=== PATIENT | male | born 1965 | race Asian ===

== ENCOUNTER 2022-05-06 17:31 | Emergency (ER) | payer MEDICAID ==
[~2022-05-06] VITALS: Ht 175.3 cm; Wt 72.6 kg
--- NOTE | 2022-05-06 18:15 | NUR ---
PT IS IN ROOM #1A. DR JUSTIN EVALUATED THE PT.
[2022-05-06 18:34] LABS: HEMATOCRIT 37.5 % (36.7-47.1); MEAN CORPUSCULAR HEMOGLOBIN 30.5 uug (23.8-33.4); MEAN CORPUSCULAR VOLUME 90.2 fL (73.0-96.2); PLATELET COUNT (AUTO) 177 K/uL (152-348)
[2022-05-06 18:47] LABS: CARBON DIOXIDE 27 mmol/L (21-32); CHLORIDE 106 mmol/L (98-107); CREATININE 1.1 mg/dL (0.6-1.3); GLUCOSE 92 mg/dL (74-106); POTASSIUM 4.1 mmol/L (3.5-5.1); UREA NITROGEN, BLOOD 29 mg/dL (7-18)
[2022-05-06 19:00] LABS: ALANINE AMINOTRANSFERASE 79 U/L (16-63); ALKALINE PHOSPHATASE 93 U/L (50-136); ASPARTATE AMINOTRANSFERASE 37 U/L (15-37); BILIRUBIN,DIRECT 0.1 mg/dL (0.0-0.2); BILIRUBIN,TOTAL 0.5 mg/dL (0.2-1.0); TOTAL PROTEIN, SERUM 6.8 g/dL (6.4-8.2)
--- NOTE | 2022-05-06 19:24 | NUR ---
Patient eloped from facility. ER physician notified. 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
== END 2022-05-06 19:26 | disposition left against medical advice (07) ==
LOC: ER 17:35
DX: I50.9 Heart failure, unspecified (principal); E78.5 Hyperlipidemia, unspecified; R07.9 Chest pain, unspecified; R94.31 Abnormal electrocardiogram [ECG] [EKG]
CPT/HCPCS: 36415; 71045; 84484; 85025; 93005; A4663

== ENCOUNTER 2022-09-20 14:15 | Emergency (ER) | payer MEDICAID ==
[~2022-09-20] VITALS: Ht 175.3 cm; Wt 72.6 kg
--- NOTE | 2022-09-20 14:28 | NUR ---
Dr Patton at the bedside for MSE.
[2022-09-20] MEDS ORDERED: MORPHINE SULFATE 2 MG/1 ML DISP.SYRIN IV ONE (14:45)
[2022-09-20] MEDS ORDERED: ONDANSETRON 4 MG/2 ML VIAL IV ONE (14:45)
[2022-09-20] MEDS ORDERED: ONDANSETRON 4 MG/2 ML VIAL ONE (14:50)
[2022-09-20] MEDS ORDERED: MORPHINE SULFATE 4 MG/1 ML DISP.SYRIN ONE (14:50)
[2022-09-20 14:58] LABS: HEMATOCRIT 44.2 % (36.7-47.1); MEAN CORPUSCULAR HEMOGLOBIN 30.3 uug (23.8-33.4); MEAN CORPUSCULAR VOLUME 92.6 fL (73.0-96.2); PLATELET COUNT (AUTO) 169 K/uL (152-348)
[2022-09-20 15:12] LABS: CARBON DIOXIDE 26 mmol/L (21-32); CHLORIDE 103 mmol/L (98-107); CREATININE 1.4 mg/dL (0.6-1.3); GLUCOSE 125 mg/dL (74-106); POTASSIUM 4.2 mmol/L (3.5-5.1); UREA NITROGEN, BLOOD 39 mg/dL (7-18)
--- NOTE | 2022-09-20 15:22 | NUR ---
Pt out of ER for Ct scan.
[2022-09-20 15:25] LABS: ALANINE AMINOTRANSFERASE 43 U/L (16-63); ALKALINE PHOSPHATASE 89 U/L (50-136); ASPARTATE AMINOTRANSFERASE 37 U/L (15-37); BILIRUBIN,DIRECT 0.4 mg/dL (0.0-0.2); BILIRUBIN,TOTAL 1.6 mg/dL (0.2-1.0); TOTAL PROTEIN, SERUM 7.4 g/dL (6.4-8.2)
--- NOTE | 2022-09-20 15:30 | NUR ---
Pt back from Ct scan, resting in bed.
--- NOTE | 2022-09-20 16:02 | NUR ---
Patient is resting comfortably in bed with eyes closed, NAD noted.
--- NOTE | 2022-09-20 17:30 | NUR ---
Dinner tray provided, pt ate w/ great appettite.
[2022-09-20 18:18] VITALS: BP 131/68
--- NOTE | 2022-09-20 18:18 | NUR ---
Patient given written and verbal discharge instructions. Patient verbalizes understanding of instructions. Patient is ambulatory with steady gait. Refuses offer of [facility] placement. Patient given list of available shelters in surrounding area.
--- NOTE | 2022-09-20 18:18 | NUR ---
IV removed. Catheter intact and site benign. Pressure and 4x4 gauze applied to site. No bleeding noted.
== END 2022-09-20 18:19 | disposition home or self-care (01) ==
LOC: ER 14:15
DX: R07.9 Chest pain, unspecified (principal); J44.9 Chronic obstructive pulmonary disease, unspecified; E78.00 Pure hypercholesterolemia, unspecified; Z87.19 Personal history of other diseases of the digestive system; I50.9 Heart failure, unspecified
CPT/HCPCS: 99285; 74176; 96374; 71045; 96375; 80076; 80048; 83880; 83690; 85025; 84484; 36415; 93005; J2405; J2270; A4663

== ENCOUNTER 2023-12-26 11:22 | Emergency (ER) | payer MEDICAID ==
[~2023-12-26] VITALS: Ht 172.7 cm; Wt 72.6 kg
[~2023-12-26 11:22] MED LIST: BUPR1FIL SL; FURO-152 PO; MORP15TA60 PO
[2023-12-26 11:59] LABS: BASOPHILS # (AUTO) 0.2 K/UL (0.0-0.2); EOSINOPHILS # (AUTO) 0.2 K/uL (0.0-0.7); EOSINOPHILS % (AUTO) 2.3 % (0.0-7.0); HEMATOCRIT 39.2 % (36.7-47.1); HEMOGLOBIN 12.8 g/dL (12.5-16.3); LYMPHOCYTES # (AUTO) 1.3 K/uL (0.8-4.8); LYMPHOCYTES % (AUTO) 15.2 % (20.5-51.5); MEAN CORPUSCULAR HEMOGLOBIN 28.7 uug (23.8-33.4); MEAN CORPUSCULAR HGB CONC 33 g/dL (32.5-36.3); MONOCYTES # (AUTO) 0.6 K/uL (0.1-1.30); MONOCYTES % (AUTO) 6.6 % (0.0-11.0); NEUTROPHILS # (AUTO) 6.3 K/uL (1.8-8.9); NEUTROPHILS % (AUTO) 73.9 % (38.5-71.5); PLATELET COUNT (AUTO) 280 K/uL (152-348); RED BLOOD CELL COUNT(AUTO) 4.46 MIL/uL (4.06-5.63); RED CELL DISTRIBUTION WIDTH 15.8 % (12.1-16.2); WHITE BLOOD COUNT (AUTO) 8.6 K/uL (3.6-10.2)
[2023-12-26 12:32] LABS: ALANINE AMINOTRANSFERASE 52 U/L (16-63); ALBUMIN 3.6 g/dL (3.4-5.0); ALKALINE PHOSPHATASE 126 U/L (50-136); ASPARTATE AMINOTRANSFERASE 37 U/L (15-37); BILIRUBIN,DIRECT 0.3 mg/dL (0.0-0.2); BILIRUBIN,TOTAL 0.9 mg/dL (0.2-1.0); CARBON DIOXIDE 31 mmol/L (21-32); CHLORIDE 99 mmol/L (98-107); CREATININE 1.2 mg/dL (0.6-1.3); GLUCOSE 123 mg/dL (74-106); NT-PRO BNP 6092 pg/mL (0-125); POTASSIUM 4.2 mmol/L (3.5-5.1); SODIUM SERUM 137 mmol/L (136-145); TOTAL PROTEIN, SERUM 8.4 g/dL (6.4-8.2); UREA NITROGEN, BLOOD 24 mg/dL (7-18)
[2023-12-26 12:42] LABS: DIFFERENTIAL COMMENT 1
[2023-12-26] MEDS: ASPIRIN 81 MG TAB.CHEW PO ONE (13:24)
[2023-12-26 13:25] VITALS: BP 112/70
[2023-12-26] MEDS: NITROGLYCERIN OINT 1 GM PACKET TP ONE (13:25)
[2023-12-26] MEDS ORDERED: NITROGLYCERIN OINT 1 GM PACKET TP ONE (13:27)
[2023-12-26] MEDS ORDERED: ASPIRIN 81 MG TAB.CHEW ONE (13:27)
[2023-12-26 13:38] LABS: *AMPHETAMINE, URINE NEGATIVE (NEGATIVE); *BARBITURATE, URINE NEGATIVE (NEGATIVE); *BENZODIAZEPINE, URINE NEGATIVE (NEGATIVE); *CANNABINOID, URINE NEGATIVE (NEGATIVE); *COCCAINE, URINE NEGATIVE (NEGATIVE); *OPIATE, URINE NEGATIVE (NEGATIVE); *PHENCYCLIDINE SCREEN,URINE NEGATIVE (NEGATIVE)
[2023-12-26] MEDS ORDERED: BUPR1FIL7 SL (13:40)
[2023-12-26] MEDS ORDERED: ATOR10TA PO (13:40)
[2023-12-26] MEDS ORDERED: FURO-152 PO (13:40)
[2023-12-26] MEDS ORDERED: MORP15TA PO (13:40)
[2023-12-26 13:47] LABS: FENTANYL, URINE NEGATIVE (NEGATIVE)
[2023-12-26] MEDS: HYDROMORPHONE 1 MG/1 ML DISP.SYRIN IV ONE (14:30)
[2023-12-26] MEDS ORDERED: HYDROMORPHONE 1 MG/1 ML DISP.SYRIN ONE (14:38)
[2023-12-26] MEDS: ONDANSETRON 4 MG/2 ML VIAL IV ONE (14:40)
[2023-12-26] MEDS ORDERED: ONDANSETRON 4 MG/2 ML VIAL ONE (14:43)
[2023-12-26 18:47] VITALS: O2SAT 96
== END 2023-12-26 19:28 | disposition short-term general hospital (02) ==
LOC: ER 11:22
DX: I21.4 Non-ST elevation (NSTEMI) myocardial infarction (principal); F17.200 Nicotine dependence, unspecified, uncomplicated; Z79.899 Other long term (current) drug therapy; Z59.00 Homelessness unspecified
CPT/HCPCS: 99291; 96374; 96375; 80076; 80048; 83880; 83690; 85025; 85379; 85730; 84484 ×2; 36415; 93005; 71045; 80307; J2405; J1170; A4606; A4663

== ENCOUNTER 2024-02-21 18:50 | Emergency (ER) | payer MEDICAID ==
[~2024-02-21] VITALS: Ht 172.7 cm; Wt 68.0 kg
[~2024-02-21 18:50] MED LIST changes: +ATOR10TA PO; +BUPR1FIL7 SL; +MORP15TA PO
[2024-02-21] MEDS ORDERED: OXYCODONE/APAP 5-325 MG TABLET ONE (19:32)
[2024-02-21] MEDS ORDERED: ONDANSETRON ODT 4 MG TAB.RAPDIS ONE (19:32)
[2024-02-21] MEDS: OXYCODONE/APAP 5-325 MG TABLET PO ONE (19:35)
[2024-02-21] MEDS: ONDANSETRON ODT 4 MG TAB.RAPDIS SL ONE (19:35)
[2024-02-21] MEDS ORDERED: OXYC-133 PO (20:34)
[2024-02-21 20:44] VITALS: BP 138/69; TEMP 97.9; O2SAT 99
== END 2024-02-21 20:45 | disposition home or self-care (01) ==
LOC: ER 18:53
DX: S01.81XA Laceration without foreign body of other part of head, initial encounter (principal); R51.9 Headache, unspecified; F17.200 Nicotine dependence, unspecified, uncomplicated; Z79.899 Other long term (current) drug therapy; Z59.00 Homelessness unspecified; Y08.89XA Assault by other specified means, initial encounter; Y93.89 Activity, other specified; Y92.89 Other specified places as the place of occurrence of the external cause; Y99.8 Other external cause status
CPT/HCPCS: 70450; A4606; A4663; Q0162

== ENCOUNTER 2024-04-02 15:06 | Emergency (ER) | payer MEDICAID ==
[~2024-04-02] VITALS: Ht 175.3 cm; Wt 70.3 kg
[~2024-04-02 15:06] MED LIST changes: +OXYC-133 PO
[2024-04-02 15:54] LABS: BASOPHILS # (AUTO) 0.1 K/UL (0.0-0.2); BASOPHILS % (AUTO) 1.4 % (0.0-2.0); EOSINOPHILS # (AUTO) 0.1 K/uL (0.0-0.7); EOSINOPHILS % (AUTO) 1.3 % (0.0-7.0); HEMATOCRIT 37.5 % (36.7-47.1); HEMOGLOBIN 12.3 g/dL (12.5-16.3); LYMPHOCYTES % (AUTO) 20.3 % (20.5-51.5); MEAN CORPUSCULAR HGB CONC 33 g/dL (32.5-36.3); MEAN CORPUSCULAR VOLUME 85.4 fL (73.0-96.2); MONOCYTES # (AUTO) 0.5 K/uL (0.1-1.30); MONOCYTES % (AUTO) 10.4 % (0.0-11.0); NEUTROPHILS # (AUTO) 3.4 K/uL (1.8-8.9); NEUTROPHILS % (AUTO) 66.6 % (38.5-71.5); PLATELET COUNT (AUTO) 139 K/uL (152-348); RED CELL DISTRIBUTION WIDTH 22.1 % (12.1-16.2); WHITE BLOOD COUNT (AUTO) 5.1 K/uL (3.6-10.2)
[2024-04-02 16:00] LABS: DIFFERENTIAL COMMENT 1
[2024-04-02 16:03] LABS: *BILIRUBIN,URIN NEGATIVE (NEGATIVE); *BLOOD, URINE NEGATIVE (NEGATIVE); *CLARITY,URINE CLEAR (CLEAR); *COLOR,URINE YELLOW (YELLOW); *KETONES,URINE NEGATIVE (NEGATIVE); *PROTEIN,URINE 3+ (NEGATIVE); LEUKOCYTE ESTERASE ,URINE NEGATIVE (NEGATIVE); NITRITE, URINE NEGATIVE (NEGATIVE); UGLUCOSE NEGATIVE (NEGATIVE)
[2024-04-02 16:05] LABS: CALCIUM 8.7 mg/dL (8.5-10.1); CARBON DIOXIDE 18 mmol/L (21-32); CHLORIDE 105 mmol/L (98-107); CREATININE 1.2 mg/dL (0.6-1.3); GLUCOSE 95 mg/dL (74-106); POTASSIUM 4.2 mmol/L (3.5-5.1); SODIUM SERUM 135 mmol/L (136-145); UREA NITROGEN, BLOOD 34 mg/dL (7-18)
[2024-04-02 16:08] LABS: ETHANOL < 3 MG/DL (0-10)
[2024-04-02] MEDS ORDERED: LORAZEPAM 1 MG TABLET ONE (16:10)
[2024-04-02] MEDS ORDERED: HYDROCODONE/APAP 10-325 MG TABLET ONE (16:11)
[2024-04-02] MEDS: HYDROCODONE/APAP 10-325 MG TABLET PO ONE (16:13)
[2024-04-02] MEDS: LORAZEPAM 0.5 MG TABLET PO ONE (16:13)
[2024-04-02 16:14] LABS: ALANINE AMINOTRANSFERASE 35 U/L (16-63); ALBUMIN 3.5 g/dL (3.4-5.0); ALKALINE PHOSPHATASE 102 U/L (50-136); ASPARTATE AMINOTRANSFERASE 29 U/L (15-37); BILIRUBIN,DIRECT 0.4 mg/dL (0.0-0.2); BILIRUBIN,TOTAL 0.9 mg/dL (0.2-1.0); TOTAL PROTEIN, SERUM 7.4 g/dL (6.4-8.2)
[2024-04-02 16:17] LABS: *AMPHETAMINE, URINE POSITIVE (NEGATIVE); *BARBITURATE, URINE NEGATIVE (NEGATIVE); *BENZODIAZEPINE, URINE NEGATIVE (NEGATIVE); *CANNABINOID, URINE NEGATIVE (NEGATIVE); *COCCAINE, URINE NEGATIVE (NEGATIVE); *OPIATE, URINE NEGATIVE (NEGATIVE); *PHENCYCLIDINE SCREEN,URINE NEGATIVE (NEGATIVE); FENTANYL, URINE NEGATIVE (NEGATIVE)
[2024-04-02 16:27] LABS: BACTERIA,URINE NONE SEEN /HPF (NONE SEEN); RBC,URINE NONE SEEN /HPF (0-3); SQUAMOUS EPITHELIAL CELL,UR FEW /HPF (NONE SEEN); WBC,URINE 0-3 /HPF (0-3)
[2024-04-02] MEDS ORDERED: NALO4SPR (18:18)
[2024-04-02] MEDS ORDERED: EMPA10TA PO (18:18)
[2024-04-02] MEDS ORDERED: ASPI-1420 PO (18:18)
[2024-04-02] MEDS ORDERED: NITR0.4T48 SL (18:18)
[2024-04-02] MEDS ORDERED: SPIR25TA6 PO (18:18)
[2024-04-02] MEDS ORDERED: FURO40TA5 PO (18:18)
[2024-04-02] MEDS ORDERED: CARV6.252 PO (18:18)
[2024-04-02] MEDS ORDERED: ISOS10TA2 PO (18:18)
[2024-04-02] MEDS ORDERED: GABA300T25 (18:18)
[2024-04-02] MEDS ORDERED: ACET-73 PO (18:18)
[2024-04-02] MEDS ORDERED: ATOR80TA (18:18)
[2024-04-02] MEDS ORDERED: HYDR-3980 PO (18:31)
[2024-04-02] MEDS ORDERED: DICY20TA11 PO (18:31)
[2024-04-02 18:39] LABS: LIPASE 32 U/L (16-77)
[2024-04-03 02:39] VITALS: BP 138/88; O2SAT 97
== END 2024-04-02 19:50 | disposition home or self-care (01) ==
LOC: ER 15:07
DX: R10.9 Unspecified abdominal pain (principal); F17.200 Nicotine dependence, unspecified, uncomplicated; Z98.890 Other specified postprocedural states; Z79.899 Other long term (current) drug therapy; Z79.82 Long term (current) use of aspirin; Z59.00 Homelessness unspecified
CPT/HCPCS: 36415; 71045; 83605; 83690; 84484; 85025; 93005; A4606; A4663; G0480

== ENCOUNTER 2024-04-08 20:09 | Inpatient (IN) | payer MEDICAID ==
[~2024-04-08] VITALS: Ht 170.2 cm; Wt 69.2 kg
[~2024-04-08 20:09] MED LIST changes: +ACET-73 PO; +ASPI-1420 PO; -ATOR10TA PO; +ATOR80TA; -BUPR1FIL SL; -BUPR1FIL7 SL; +CARV6.252 PO; +DICY20TA11 PO; +EMPA10TA PO; -FURO-152 PO; +FURO40TA5 PO; +GABA300T25; +HYDR-3980 PO; +ISOS10TA2 PO; -MORP15TA PO; -MORP15TA60 PO; +NALO4SPR; +NITR0.4T48 SL; -OXYC-133 PO; +SPIR25TA6 PO
[2024-04-08] MEDS ORDERED: MORPHINE SULFATE 2 MG/1 ML DISP.SYRIN ONE (20:57)
[2024-04-08] MEDS: MORPHINE SULFATE 2 MG/1 ML DISP.SYRIN IV ONE (21:20)
[2024-04-08 21:28] LABS: BASOPHILS # (AUTO) 0.1 K/UL (0.0-0.2); BASOPHILS % (AUTO) 1.1 % (0.0-2.0); EOSINOPHILS # (AUTO) 0.1 K/uL (0.0-0.7); EOSINOPHILS % (AUTO) 1.4 % (0.0-7.0); HEMATOCRIT 40.6 % (36.7-47.1); HEMOGLOBIN 13.1 g/dL (12.5-16.3); LYMPHOCYTES # (AUTO) 1.1 K/uL (0.8-4.8); LYMPHOCYTES % (AUTO) 19.9 % (20.5-51.5); MEAN CORPUSCULAR HEMOGLOBIN 28.3 uug (23.8-33.4); MEAN CORPUSCULAR HGB CONC 32 g/dL (32.5-36.3); MEAN CORPUSCULAR VOLUME 87.4 fL (73.0-96.2); MONOCYTES # (AUTO) 0.5 K/uL (0.1-1.30); MONOCYTES % (AUTO) 9.4 % (0.0-11.0); NEUTROPHILS # (AUTO) 3.8 K/uL (1.8-8.9); NEUTROPHILS % (AUTO) 68.2 % (38.5-71.5); PLATELET COUNT (AUTO) 137 K/uL (152-348); RED BLOOD CELL COUNT(AUTO) 4.64 MIL/uL (4.06-5.63); RED CELL DISTRIBUTION WIDTH 24.4 % (12.1-16.2); WHITE BLOOD COUNT (AUTO) 5.5 K/uL (3.6-10.2)
[2024-04-08 21:30] LABS: *BILIRUBIN,URIN NEGATIVE (NEGATIVE); *BLOOD, URINE NEGATIVE (NEGATIVE); *CLARITY,URINE CLEAR (CLEAR); *COLOR,URINE YELLOW (YELLOW); *KETONES,URINE NEGATIVE (NEGATIVE); *PROTEIN,URINE 1+ (NEGATIVE); *UROBILINOGEN,URINE 0.2 E.U./dl (NORMAL); LEUKOCYTE ESTERASE ,URINE NEGATIVE (NEGATIVE); NITRITE, URINE NEGATIVE (NEGATIVE); UGLUCOSE NEGATIVE (NEGATIVE)
[2024-04-08 21:31] LABS: DIFFERENTIAL COMMENT 1
[2024-04-08 21:35] LABS: CALCIUM 8.4 mg/dL (8.5-10.1); CARBON DIOXIDE 24 mmol/L (21-32); CHLORIDE 103 mmol/L (98-107); CREATININE 1.6 mg/dL (0.6-1.3); GLUCOSE 88 mg/dL (74-106); POTASSIUM 5.3 mmol/L (3.5-5.1); SODIUM SERUM 138 mmol/L (136-145); UREA NITROGEN, BLOOD 39 mg/dL (7-18)
[2024-04-08 21:45] LABS: ETHANOL < 3 MG/DL (0-10)
[2024-04-08 21:46] LABS: *AMPHETAMINE, URINE POSITIVE (NEGATIVE); *BARBITURATE, URINE NEGATIVE (NEGATIVE); *BENZODIAZEPINE, URINE NEGATIVE (NEGATIVE); *CANNABINOID, URINE NEGATIVE (NEGATIVE); *COCCAINE, URINE NEGATIVE (NEGATIVE); *OPIATE, URINE NEGATIVE (NEGATIVE); *PHENCYCLIDINE SCREEN,URINE NEGATIVE (NEGATIVE); FENTANYL, URINE NEGATIVE (NEGATIVE)
[2024-04-08 21:47] LABS: ALANINE AMINOTRANSFERASE 106 U/L (16-63); ALBUMIN 3.4 g/dL (3.4-5.0); ALKALINE PHOSPHATASE 117 U/L (50-136); ASPARTATE AMINOTRANSFERASE 89 U/L (15-37); NT-PRO BNP 10180 pg/mL (0-125); TOTAL PROTEIN, SERUM 7.1 g/dL (6.4-8.2)
[2024-04-08] MEDS ORDERED: FUROSEMIDE 40 MG/4 ML VIAL ONE (22:12)
[2024-04-08] MEDS: FUROSEMIDE 40 MG/4 ML VIAL IV ONE (22:15)
[2024-04-08] MEDS ORDERED: ONDANSETRON 4 MG/2 ML VIAL IV PRN (23:30)
[2024-04-08] MEDS ORDERED: MAGNESIUM HYDROXIDE 30 ML LIQUID UDC PO PRN (23:30)
[2024-04-08] MEDS ORDERED: REMEDY ESSENTIAL ZINC PASTE 113 GM TP PRN (23:30)
[2024-04-08] MEDS ORDERED: DEXTROSE 50% 50 ML DISP.SYRIN IV PRN (23:30)
[2024-04-08] MEDS ORDERED: ACETAMINOPHEN 325 MG TABLET PO PRN (23:30)
[2024-04-09] VITALS (7 sets, daily range): BP systolic 118–156; BP diastolic 58–107; TEMP 97–98.4; O2SAT 96–99
[2024-04-09] MEDS: FUROSEMIDE 20 MG/2 ML VIAL IV ONE ×2 (00:30→02:47)
[2024-04-09] MEDS: HYDROMORPHONE 1 MG/1 ML DISP.SYRIN IV PRN (01:28)
[2024-04-09] MEDS: MAG HYDROX/AL HYDROX/SIMETH 30 ML LIQUID UDC PO ONE (02:07)
[2024-04-09] MEDS: BLOOD SUGAR DIAGNOSTIC 1 EACH STRIP VI SCH (07:27)
[2024-04-09 08:06] LABS: BASOPHILS # (AUTO) 0.1 K/UL (0.0-0.2); BASOPHILS % (AUTO) 1.3 % (0.0-2.0); EOSINOPHILS # (AUTO) 0.1 K/uL (0.0-0.7); EOSINOPHILS % (AUTO) 1.9 % (0.0-7.0); HEMATOCRIT 42.3 % (36.7-47.1); HEMOGLOBIN 13.7 g/dL (12.5-16.3); LYMPHOCYTES # (AUTO) 1.7 K/uL (0.8-4.8); LYMPHOCYTES % (AUTO) 29.8 % (20.5-51.5); MEAN CORPUSCULAR HEMOGLOBIN 28.3 uug (23.8-33.4); MEAN CORPUSCULAR HGB CONC 32 g/dL (32.5-36.3); MEAN CORPUSCULAR VOLUME 87.5 fL (73.0-96.2); MONOCYTES # (AUTO) 0.7 K/uL (0.1-1.30); MONOCYTES % (AUTO) 12.9 % (0.0-11.0); NEUTROPHILS # (AUTO) 3.1 K/uL (1.8-8.9); NEUTROPHILS % (AUTO) 54.1 % (38.5-71.5); PLATELET COUNT (AUTO) 130 K/uL (152-348); RED BLOOD CELL COUNT(AUTO) 4.83 MIL/uL (4.06-5.63); RED CELL DISTRIBUTION WIDTH 24.1 % (12.1-16.2); WHITE BLOOD COUNT (AUTO) 5.8 K/uL (3.6-10.2)
[2024-04-09 08:14] LABS: DIFFERENTIAL COMMENT 1
[2024-04-09 08:22] LABS: CALCIUM 8.6 mg/dL (8.5-10.1); CREATININE 1.5 mg/dL (0.6-1.3); MAGNESIUM 2.1 mg/dL (1.8-2.4); PHOSPHOROUS 4.1 mg/dL (2.5-4.9); POTASSIUM 4.5 mmol/L (3.5-5.1)
[2024-04-09] MEDS: ASPIRIN EC 81 MG TABLET.DR PO SCH (08:53)
[2024-04-09] MEDS: CARVEDILOL 6.25 MG TABLET PO SCH (08:54)
[2024-04-09] MEDS: ISOSORBIDE DINITRATE 10 MG TABLET PO SCH (08:54)
[2024-04-09] MEDS ORDERED: EMPAGLIFLOZIN PO SCH (09:00)
[2024-04-09] MEDS: FUROSEMIDE 40 MG/4 ML VIAL IV SCH (09:02)
[2024-04-09 13:58] LABS: *BILIRUBIN,URIN NEGATIVE (NEGATIVE); *BLOOD, URINE NEGATIVE (NEGATIVE); *CLARITY,URINE CLEAR (CLEAR); *COLOR,URINE YELLOW (YELLOW); *KETONES,URINE NEGATIVE (NEGATIVE); *PROTEIN,URINE 1+ (NEGATIVE); LEUKOCYTE ESTERASE ,URINE NEGATIVE (NEGATIVE); NITRITE, URINE NEGATIVE (NEGATIVE); PH,URINE 5.5 (5.0-8.0); UGLUCOSE NEGATIVE (NEGATIVE)
[2024-04-09 13:59] LABS: *CREATININE,URINE 104.3 mg/dL (30-125); *URINE TOTAL PROTEIN RANDOM 49.5 mg/dL (<150/24HR)
[2024-04-09 14:20] LABS: BACTERIA,URINE NONE SEEN /HPF (NONE SEEN); WBC,URINE 0-3 /HPF (0-3)
[2024-04-09 14:21] LABS: SQUAMOUS EPITHELIAL CELL,UR FEW /HPF (NONE SEEN)
[2024-04-09] MEDS: MORPHINE SULFATE 2 MG/1 ML DISP.SYRIN IV PRN (15:49)
[2024-04-09] MEDS: INSULIN REGULAR, HUMAN 300 UNIT/3 ML VIAL SQ PRN (21:41)
[2024-04-10 00:38] VITALS: O2SAT 98
[2024-04-10 05:21] VITALS: BP 112/82; TEMP 98.6; O2SAT 100
[2024-04-10 07:39] LABS: BASOPHILS # (AUTO) 0.1 K/UL (0.0-0.2); BASOPHILS % (AUTO) 1.5 % (0.0-2.0); EOSINOPHILS # (AUTO) 0.3 K/uL (0.0-0.7); EOSINOPHILS % (AUTO) 5.2 % (0.0-7.0); HEMATOCRIT 38.9 % (36.7-47.1); LYMPHOCYTES # (AUTO) 0.8 K/uL (0.8-4.8); LYMPHOCYTES % (AUTO) 15.7 % (20.5-51.5); MEAN CORPUSCULAR HEMOGLOBIN 28.8 uug (23.8-33.4); MEAN CORPUSCULAR HGB CONC 33 g/dL (32.5-36.3); MEAN CORPUSCULAR VOLUME 86.4 fL (73.0-96.2); MONOCYTES # (AUTO) 0.5 K/uL (0.1-1.30); MONOCYTES % (AUTO) 9.2 % (0.0-11.0); NEUTROPHILS # (AUTO) 3.5 K/uL (1.8-8.9); NEUTROPHILS % (AUTO) 68.4 % (38.5-71.5); PLATELET COUNT (AUTO) 120 K/uL (152-348); RED CELL DISTRIBUTION WIDTH 23.5 % (12.1-16.2); WHITE BLOOD COUNT (AUTO) 5.1 K/uL (3.6-10.2)
[2024-04-10 07:50] VITALS: BP 126/96; TEMP 98; O2SAT 100
[2024-04-10 07:51] LABS: DIFFERENTIAL COMMENT 1
[2024-04-10 07:54] LABS: ALBUMIN 3.4 g/dL (3.4-5.0); BILIRUBIN,TOTAL 1.3 mg/dL (0.2-1.0); CALCIUM 8.3 mg/dL (8.5-10.1); CREATININE 1.5 mg/dL (0.6-1.3); MAGNESIUM 1.9 mg/dL (1.8-2.4); PHOSPHOROUS 4.6 mg/dL (2.5-4.9)
[2024-04-10] MEDS: LOSARTAN POTASSIUM 25 MG TABLET PO SCH (08:35)
[2024-04-10] MEDS: SPIRONOLACTONE 25 MG TABLET PO SCH (08:35)
[2024-04-10 11:30] VITALS: BP 118/80; TEMP 97.8; O2SAT 100
[2024-04-10 15:45] VITALS: BP 122/85; TEMP 97.8; O2SAT 100
[2024-04-10 23:55] VITALS: BP 103/64; TEMP 98.2
[2024-04-11 06:50] VITALS: BP 112/54; TEMP 97.7
[2024-04-11 08:00] VITALS: BP 153/84; TEMP 98.2
[2024-04-11 08:25] LABS: CALCIUM 8.2 mg/dL (8.5-10.1); CREATININE 1.4 mg/dL (0.6-1.3)
[2024-04-11 12:00] VITALS: BP 137/56; TEMP 97.4
[2024-04-11] MEDS ORDERED: LOSA25TA27 PO (12:55)
[2024-04-11] MEDS ORDERED: SACU1TAB PO (12:55)
[2024-04-11] MEDS ORDERED: FURO40TA5 PO (12:55)
[2024-04-11 16:00] VITALS: BP 139/96; TEMP 97.6; O2SAT 97
[2024-04-11] MEDS: FUROSEMIDE 40 MG TABLET PO SCH (16:44)
[2024-04-11 16:45] VITALS: BP 139/96
[2024-04-12 09:06] LABS: PTH, INTACT 23 pg/mL (15-65)
[2024-04-14 09:07] LABS: A/G RATIO 0.9 (0.7-1.7); ALPHA-1-GLOBULIN 0.3 g/dL (0.0-0.4); ALPHA-2-GLOBULIN 0.5 g/dL (0.4-1.0); GAMMA GLOBULIN 1.7 g/dL (0.4-1.8); GLOBULIN, TOTAL 3.5 g/dL (2.2-3.9); M-SPIKE Not Observed g/dL (Not Observed)
== END 2024-04-11 18:00 | disposition home or self-care (01) | DRG 194 ==
LOC: ER 20:10 → TELE3 23:19 → MEDSURG3 04-10 11:00
PROVIDERS: ADMIT Nurse Practitioner Acute Care
DX: I11.0 Hypertensive heart disease with heart failure (principal); N17.9 Acute kidney failure, unspecified; I42.0 Dilated cardiomyopathy; R18.8 Other ascites; K74.60 Unspecified cirrhosis of liver; I50.23 Acute on chronic systolic (congestive) heart failure; E87.5 Hyperkalemia; J98.11 Atelectasis; G89.4 Chronic pain syndrome; I25.2 Old myocardial infarction; F15.20 Other stimulant dependence, uncomplicated; I25.10 Atherosclerotic heart disease of native coronary artery without angina pectoris; E78.5 Hyperlipidemia, unspecified; Z59.02 Unsheltered homelessness; Z91.199 Patient's noncompliance with other medical treatment and regimen due to unspecified reason; K40.90 Unilateral inguinal hernia, without obstruction or gangrene, not specified as recurrent; Z79.899 Other long term (current) drug therapy; Z79.82 Long term (current) use of aspirin; Z79.84 Long term (current) use of oral hypoglycemic drugs
CPT/HCPCS: 36415; 71045; 76770; 83735; 83970; 84100; 84155; 84165; 84300; 84484; 85025; 93005; 93307; A4606; A4663; G0378; G0480; J1170; J1815; J1940; J2270

== ENCOUNTER 2024-05-07 00:18 | Emergency (ER) | payer MEDICAID ==
[~2024-05-07] VITALS: Ht 170.2 cm; Wt 70.3 kg
[~2024-05-07 00:18] MED LIST changes: -DICY20TA11 PO; +LOSA25TA27 PO; -NALO4SPR; +SACU1TAB PO
[2024-05-07] MEDS ORDERED: HYDROMORPHONE HCL 2 MG TABLET ONE (00:57)
[2024-05-07] MEDS ORDERED: ASPIRIN 81 MG TAB.CHEW ONE (00:57)
[2024-05-07] MEDS: HYDROMORPHONE HCL 2 MG TABLET PO ONE (00:59)
[2024-05-07] MEDS: ASPIRIN 81 MG TAB.CHEW PO ONE (00:59)
[2024-05-07 01:12] LABS: MEAN CORPUSCULAR HGB CONC 32 g/dL (32.5-36.3); PLATELET COUNT (AUTO) 119 K/uL (152-348); WHITE BLOOD COUNT (AUTO) 5.9 K/uL (3.6-10.2)
[2024-05-07] MEDS ORDERED: LORAZEPAM 2 MG/1 ML VIAL ONE (01:12)
[2024-05-07 01:13] LABS: CARBON DIOXIDE 25 mmol/L (21-32); CHLORIDE 106 mmol/L (98-107); CREATININE 1.1 mg/dL (0.6-1.3); GLUCOSE 109 mg/dL (74-106); POTASSIUM 4.1 mmol/L (3.5-5.1); SODIUM SERUM 140 mmol/L (136-145); UREA NITROGEN, BLOOD 29 mg/dL (7-18)
[2024-05-07 01:16] LABS: BASOPHILS # (AUTO) 0.1 K/UL (0.0-0.2); BASOPHILS % (AUTO) 1.4 % (0.0-2.0); DIFFERENTIAL COMMENT 0; EOSINOPHILS # (AUTO) 0.1 K/uL (0.0-0.7); EOSINOPHILS % (AUTO) 1.8 % (0.0-7.0); HEMATOCRIT 36.4 % (36.7-47.1); HEMOGLOBIN 11.7 g/dL (12.5-16.3); LYMPHOCYTES # (AUTO) 1.2 K/uL (0.8-4.8); LYMPHOCYTES % (AUTO) 19.5 % (20.5-51.5); MEAN CORPUSCULAR HEMOGLOBIN 28.7 uug (23.8-33.4); MEAN CORPUSCULAR VOLUME 89.1 fL (73.0-96.2); MONOCYTES # (AUTO) 0.6 K/uL (0.1-1.30); MONOCYTES % (AUTO) 10.2 % (0.0-11.0); NEUTROPHILS % (AUTO) 67.1 % (38.5-71.5); RED BLOOD CELL COUNT(AUTO) 4.09 MIL/uL (4.06-5.63); RED CELL DISTRIBUTION WIDTH 21.1 % (12.1-16.2)
[2024-05-07] MEDS: LORAZEPAM 2 MG/1 ML VIAL IV ONE (01:23)
[2024-05-07 01:26] LABS: ALANINE AMINOTRANSFERASE 48 U/L (16-63); ALBUMIN 3.4 g/dL (3.4-5.0); ALKALINE PHOSPHATASE 92 U/L (50-136); ASPARTATE AMINOTRANSFERASE 39 U/L (15-37); BILIRUBIN,DIRECT 0.2 mg/dL (0.0-0.2); BILIRUBIN,TOTAL 0.7 mg/dL (0.2-1.0); NT-PRO BNP 30626 pg/mL (0-125); TOTAL PROTEIN, SERUM 7.3 g/dL (6.4-8.2)
[2024-05-07 06:30] VITALS: BP 124/92; TEMP 97.5; O2SAT 100
== END 2024-05-07 06:30 | disposition home or self-care (01) ==
LOC: ER 00:21
DX: G89.29 Other chronic pain (principal); R07.89 Other chest pain; M79.10 Myalgia, unspecified site; F15.10 Other stimulant abuse, uncomplicated; F17.210 Nicotine dependence, cigarettes, uncomplicated; Z59.00 Homelessness unspecified; Z71.6 Tobacco abuse counseling; Z79.82 Long term (current) use of aspirin; Z79.899 Other long term (current) drug therapy
CPT/HCPCS: 99285; 96374; 71045; 99406; 80076; 80048; 83880; 85025; 84484 ×2; 36415; 93005; J2060; A4606; A4663

== ENCOUNTER 2024-05-17 23:06 | Emergency (ER) | payer MEDICAID ==
[~2024-05-17] VITALS: Ht 170.2 cm; Wt 68.0 kg
[2024-05-17] MEDS: MORPHINE SULFATE 4 MG/1 ML DISP.SYRIN IM ONE (23:43)
[2024-05-18 00:07] LABS: CALCIUM 8.7 mg/dL (8.5-10.1); CREATININE 1.1 mg/dL (0.6-1.3); POTASSIUM 3.8 mmol/L (3.5-5.1)
[2024-05-18 00:12] LABS: ALBUMIN 3.5 g/dL (3.4-5.0); BILIRUBIN,DIRECT 0.2 mg/dL (0.0-0.2); BILIRUBIN,TOTAL 0.5 mg/dL (0.2-1.0); TOTAL PROTEIN, SERUM 7.4 g/dL (6.4-8.2)
[2024-05-18 00:25] LABS: BASOPHILS # (AUTO) 0.1 K/UL (0.0-0.2); BASOPHILS % (AUTO) 1.1 % (0.0-2.0); EOSINOPHILS # (AUTO) 0.2 K/uL (0.0-0.7); EOSINOPHILS % (AUTO) 4.3 % (0.0-7.0); HEMATOCRIT 37.3 % (36.7-47.1); HEMOGLOBIN 12.2 g/dL (12.5-16.3); LYMPHOCYTES # (AUTO) 0.9 K/uL (0.8-4.8); LYMPHOCYTES % (AUTO) 16.4 % (20.5-51.5); MEAN CORPUSCULAR HEMOGLOBIN 29.6 uug (23.8-33.4); MEAN CORPUSCULAR HGB CONC 33 g/dL (32.5-36.3); MEAN CORPUSCULAR VOLUME 90.3 fL (73.0-96.2); MONOCYTES # (AUTO) 0.5 K/uL (0.1-1.30); MONOCYTES % (AUTO) 9.9 % (0.0-11.0); NEUTROPHILS # (AUTO) 3.6 K/uL (1.8-8.9); NEUTROPHILS % (AUTO) 68.3 % (38.5-71.5); PLATELET COUNT (AUTO) 100 K/uL (152-348); RED BLOOD CELL COUNT(AUTO) 4.13 MIL/uL (4.06-5.63); WHITE BLOOD COUNT (AUTO) 5.2 K/uL (3.6-10.2)
[2024-05-18 00:26] LABS: DIFFERENTIAL COMMENT 1
[2024-05-18 01:01] LABS: *BILIRUBIN,URIN NEGATIVE (NEGATIVE); *CLARITY,URINE CLEAR (CLEAR); *COLOR,URINE YELLOW (YELLOW); *KETONES,URINE NEGATIVE (NEGATIVE); *PROTEIN,URINE NEGATIVE (NEGATIVE); LEUKOCYTE ESTERASE ,URINE NEGATIVE (NEGATIVE); NITRITE, URINE NEGATIVE (NEGATIVE); PH,URINE 5.5 (5.0-8.0); UGLUCOSE NEGATIVE (NEGATIVE)
[2024-05-18 01:02] LABS: *BLOOD, URINE TRACE (NEGATIVE)
[2024-05-18 01:10] LABS: *AMPHETAMINE, URINE POSITIVE (NEGATIVE); *BARBITURATE, URINE NEGATIVE (NEGATIVE); *BENZODIAZEPINE, URINE NEGATIVE (NEGATIVE); *CANNABINOID, URINE NEGATIVE (NEGATIVE); *COCCAINE, URINE NEGATIVE (NEGATIVE); *OPIATE, URINE POSITIVE (NEGATIVE); *PHENCYCLIDINE SCREEN,URINE NEGATIVE (NEGATIVE); FENTANYL, URINE NEGATIVE (NEGATIVE)
[2024-05-18 01:20] LABS: RBC,URINE 0-3 /HPF (0-3); WBC,URINE NONE SEEN /HPF (0-3)
[2024-05-18 01:21] LABS: BACTERIA,URINE NONE SEEN /HPF (NONE SEEN); SQUAMOUS EPITHELIAL CELL,UR FEW /HPF (NONE SEEN)
[2024-05-18] MEDS ORDERED: HYDROCODONE/APAP 5-325MG TABLET ONE (03:20)
[2024-05-18] MEDS: HYDROCODONE/APAP 5-325MG TABLET PO ONE (03:22)
[2024-05-18 03:31] VITALS: BP 164/120; O2SAT 100
== END 2024-05-18 03:32 | disposition home or self-care (01) ==
LOC: ER 23:09
DX: K59.00 Constipation, unspecified (principal); K40.90 Unilateral inguinal hernia, without obstruction or gangrene, not specified as recurrent; G89.29 Other chronic pain; F15.10 Other stimulant abuse, uncomplicated; I11.0 Hypertensive heart disease with heart failure; I50.9 Heart failure, unspecified; F17.210 Nicotine dependence, cigarettes, uncomplicated; Z59.00 Homelessness unspecified; Z79.82 Long term (current) use of aspirin; Z79.899 Other long term (current) drug therapy
CPT/HCPCS: 99285; 74176; 80076; 80048; 83690; 85025; 85730; 36415; 96372; 80307; 81001; J2270; A4606; A4663

== ENCOUNTER 2024-05-21 03:31 | Emergency (ER) | payer MEDICAID ==
[~2024-05-21] VITALS: Ht 170.2 cm; Wt 68.0 kg
[2024-05-21 04:04] LABS: BASOPHILS # (AUTO) 0.1 K/UL (0.0-0.2); BASOPHILS % (AUTO) 1.4 % (0.0-2.0); EOSINOPHILS # (AUTO) 0.3 K/uL (0.0-0.7); EOSINOPHILS % (AUTO) 5.3 % (0.0-7.0); HEMATOCRIT 35.7 % (36.7-47.1); HEMOGLOBIN 11.6 g/dL (12.5-16.3); LYMPHOCYTES # (AUTO) 1.1 K/uL (0.8-4.8); LYMPHOCYTES % (AUTO) 22.3 % (20.5-51.5); MEAN CORPUSCULAR HEMOGLOBIN 29.4 uug (23.8-33.4); MEAN CORPUSCULAR HGB CONC 33 g/dL (32.5-36.3); MEAN CORPUSCULAR VOLUME 90.4 fL (73.0-96.2); MONOCYTES # (AUTO) 0.4 K/uL (0.1-1.30); PLATELET COUNT (AUTO) 108 K/uL (152-348); RED BLOOD CELL COUNT(AUTO) 3.95 MIL/uL (4.06-5.63); WHITE BLOOD COUNT (AUTO) 4.9 K/uL (3.6-10.2)
[2024-05-21] MEDS ORDERED: OXYCODONE/APAP 5-325 MG TABLET ONE ×2 (04:04→07:55)
[2024-05-21 04:07] LABS: DIFFERENTIAL COMMENT 1
[2024-05-21] MEDS: OXYCODONE/APAP 5-325 MG TABLET PO ONE ×2 (04:07→07:56)
[2024-05-21 04:12] LABS: CALCIUM 8.8 mg/dL (8.5-10.1); CREATININE 1.1 mg/dL (0.6-1.3); POTASSIUM 3.6 mmol/L (3.5-5.1)
[2024-05-21 04:18] LABS: ALBUMIN 3.4 g/dL (3.4-5.0); BILIRUBIN,DIRECT 0.2 mg/dL (0.0-0.2); BILIRUBIN,TOTAL 0.5 mg/dL (0.2-1.0); TOTAL PROTEIN, SERUM 7.2 g/dL (6.4-8.2)
[2024-05-21] MEDS ORDERED: IV NORMAL SALINE 250 ML IV ONE (04:18)
[2024-05-21] MEDS ORDERED: IOHEXOL 300MG/ML 100 ML INFUS..BTL ONE (04:18)
[2024-05-21] MEDS ORDERED: SWABABLE VALVE TRANSFER SET EA MC ONE (04:18)
[2024-05-21] MEDS ORDERED: ACETAMINOPHEN 500 MG TABLET ONE (10:23)
[2024-05-21] MEDS ORDERED: BISACODYL 5 MG TABLET.DR PO ONE (10:23)
[2024-05-21] MEDS: BISACODYL 5 MG TABLET.DR PO ONE (10:25)
[2024-05-21] MEDS: ACETAMINOPHEN 500 MG TABLET PO ONE (10:25)
[2024-05-21 13:39] VITALS: BP 129/81; O2SAT 97
== END 2024-05-21 13:30 | disposition home or self-care (01) ==
LOC: ER 03:33
DX: K40.90 Unilateral inguinal hernia, without obstruction or gangrene, not specified as recurrent (principal); G89.29 Other chronic pain; I50.9 Heart failure, unspecified; F17.210 Nicotine dependence, cigarettes, uncomplicated; Z59.00 Homelessness unspecified; Z79.82 Long term (current) use of aspirin; Z79.899 Other long term (current) drug therapy
CPT/HCPCS: 36415; 83690; 85025; A4606; A4663; A9150; Q9967

== ENCOUNTER 2024-05-27 16:16 | Emergency (ER) | payer MEDICAID ==
[~2024-05-27] VITALS: Ht 175.3 cm; Wt 68.0 kg
[~2024-05-27 16:16] MED LIST changes: -ACET-73 PO
[2024-05-27 17:08] LABS: BASOPHILS % (AUTO) 0.6 % (0.0-2.0); EOSINOPHILS # (AUTO) 0.1 K/uL (0.0-0.7); EOSINOPHILS % (AUTO) 1.8 % (0.0-7.0); HEMATOCRIT 36.5 % (36.7-47.1); HEMOGLOBIN 11.5 g/dL (12.5-16.3); LYMPHOCYTES # (AUTO) 0.7 K/uL (0.8-4.8); MEAN CORPUSCULAR HEMOGLOBIN 29.1 uug (23.8-33.4); MEAN CORPUSCULAR HGB CONC 32 g/dL (32.5-36.3); MEAN CORPUSCULAR VOLUME 92.2 fL (73.0-96.2); MONOCYTES # (AUTO) 0.4 K/uL (0.1-1.30); MONOCYTES % (AUTO) 7.6 % (0.0-11.0); NEUTROPHILS # (AUTO) 3.9 K/uL (1.8-8.9); PLATELET COUNT (AUTO) 113 K/uL (152-348); RED BLOOD CELL COUNT(AUTO) 3.96 MIL/uL (4.06-5.63); RED CELL DISTRIBUTION WIDTH 21.4 % (12.1-16.2)
[2024-05-27 17:09] LABS: CALCIUM 8.6 mg/dL (8.5-10.1); CARBON DIOXIDE 20 mmol/L (21-32); CHLORIDE 105 mmol/L (98-107); DIFFERENTIAL COMMENT 1; GLUCOSE 134 mg/dL (74-106); POTASSIUM 3.5 mmol/L (3.5-5.1); SODIUM SERUM 137 mmol/L (136-145); UREA NITROGEN, BLOOD 26 mg/dL (7-18)
[2024-05-27 17:14] LABS: ALANINE AMINOTRANSFERASE 40 U/L (16-63); ALBUMIN 3.2 g/dL (3.4-5.0); ALKALINE PHOSPHATASE 90 U/L (50-136); ASPARTATE AMINOTRANSFERASE 30 U/L (15-37); BILIRUBIN,DIRECT 0.3 mg/dL (0.0-0.2); BILIRUBIN,TOTAL 0.8 mg/dL (0.2-1.0); TOTAL PROTEIN, SERUM 6.8 g/dL (6.4-8.2)
[2024-05-27 17:17] LABS: ACETAMINOPHEN < 2.0 ug/mL (10-30)
[2024-05-27 17:19] LABS: ETHANOL < 3 MG/DL (0-10)
[2024-05-27 17:45] LABS: *BILIRUBIN,URIN NEGATIVE (NEGATIVE); *BLOOD, URINE NEGATIVE (NEGATIVE); *COLOR,URINE YELLOW (YELLOW); *KETONES,URINE NEGATIVE (NEGATIVE); *PROTEIN,URINE 1+ (NEGATIVE); LEUKOCYTE ESTERASE ,URINE NEGATIVE (NEGATIVE); NITRITE, URINE NEGATIVE (NEGATIVE); PH,URINE 5.5 (5.0-8.0); UGLUCOSE NEGATIVE (NEGATIVE)
[2024-05-27 17:52] LABS: *CLARITY,URINE CLEAR (CLEAR)
[2024-05-27 17:58] LABS: *AMPHETAMINE, URINE POSITIVE (NEGATIVE); *BARBITURATE, URINE NEGATIVE (NEGATIVE); *BENZODIAZEPINE, URINE NEGATIVE (NEGATIVE); *CANNABINOID, URINE NEGATIVE (NEGATIVE); *COCCAINE, URINE NEGATIVE (NEGATIVE); *OPIATE, URINE NEGATIVE (NEGATIVE); *PHENCYCLIDINE SCREEN,URINE NEGATIVE (NEGATIVE); FENTANYL, URINE NEGATIVE (NEGATIVE)
[2024-05-27] MEDS ORDERED: OXYCODONE/APAP 5-325 MG TABLET ONE (18:04)
[2024-05-27] MEDS ORDERED: BISACODYL 5 MG TABLET.DR PO ONE (18:04)
[2024-05-27] MEDS: BISACODYL 5 MG TABLET.DR PO ONE (18:06)
[2024-05-27 18:07] LABS: BACTERIA,URINE NONE SEEN /HPF (NONE SEEN); RBC,URINE NONE SEEN /HPF (0-3); SQUAMOUS EPITHELIAL CELL,UR FEW /HPF (NONE SEEN); WBC,URINE 0-3 /HPF (0-3)
[2024-05-27] MEDS: OXYCODONE/APAP 5-325 MG TABLET PO ONE (18:07)
[2024-05-27 19:11] VITALS: BP 138/92; O2SAT 98
== END 2024-05-27 19:12 | disposition home or self-care (01) ==
LOC: ER 16:17
DX: S09.8XXA Other specified injuries of head, initial encounter (principal); I50.9 Heart failure, unspecified; F17.200 Nicotine dependence, unspecified, uncomplicated; Z98.2 Presence of cerebrospinal fluid drainage device; Z98.890 Other specified postprocedural states; Z79.891 Long term (current) use of opiate analgesic; Z59.00 Homelessness unspecified; V89.2XXA Person injured in unspecified motor-vehicle accident, traffic, initial encounter; Y93.89 Activity, other specified; Y92.89 Other specified places as the place of occurrence of the external cause; Y99.8 Other external cause status
CPT/HCPCS: 36415; 70450; 72125; 85025; A4606; A4663; G0480

== ENCOUNTER 2024-05-30 02:37 | Emergency (ER) | payer MEDICAID ==
[~2024-05-30] VITALS: Ht 172.7 cm; Wt 70.3 kg
[2024-05-30] MEDS ORDERED: METOCLOPRAMIDE HCL 10 MG/2 ML VIAL ONE (03:30)
[2024-05-30] MEDS: METOCLOPRAMIDE HCL 10 MG/2 ML VIAL IM ONE (03:36)
[2024-05-30] MEDS ORDERED: OXYCODONE/APAP 5-325 MG TABLET ONE (04:01)
[2024-05-30] MEDS: OXYCODONE/APAP 5-325 MG TABLET PO ONE (04:03)
[2024-05-30 04:47] LABS: *BILIRUBIN,URIN NEGATIVE (NEGATIVE); *BLOOD, URINE NEGATIVE (NEGATIVE); *CLARITY,URINE CLEAR (CLEAR); *COLOR,URINE YELLOW (YELLOW); *KETONES,URINE NEGATIVE (NEGATIVE); *PROTEIN,URINE 2+ (NEGATIVE); LEUKOCYTE ESTERASE ,URINE NEGATIVE (NEGATIVE); NITRITE, URINE NEGATIVE (NEGATIVE); PH,URINE 5.5 (5.0-8.0); UGLUCOSE NEGATIVE (NEGATIVE)
[2024-05-30 07:09] VITALS: BP 127/98; TEMP 207.9; O2SAT 99
== END 2024-05-30 06:16 | disposition home or self-care (01) ==
LOC: ER 02:41
DX: G89.29 Other chronic pain (principal); R10.10 Upper abdominal pain, unspecified; F15.10 Other stimulant abuse, uncomplicated; I50.9 Heart failure, unspecified; F17.210 Nicotine dependence, cigarettes, uncomplicated; Z98.890 Other specified postprocedural states; Z59.00 Homelessness unspecified
CPT/HCPCS: A4606; A4663; J2765

== ENCOUNTER 2024-06-18 17:12 | Emergency (ER) | payer MEDICAID ==
[~2024-06-18] VITALS: Ht 167.6 cm; Wt 70.3 kg
[2024-06-18] MEDS ORDERED: OXYCODONE/APAP 5-325 MG TABLET ONE (18:43)
[2024-06-18] MEDS: OXYCODONE/APAP 5-325 MG TABLET PO ONE (18:44)
[2024-06-18 19:51] VITALS: BP 140/98; O2SAT 98
== END 2024-06-18 19:52 | disposition home or self-care (01) ==
LOC: ER 17:14
DX: G89.29 Other chronic pain (principal); M79.10 Myalgia, unspecified site; F15.10 Other stimulant abuse, uncomplicated; I50.9 Heart failure, unspecified; F17.210 Nicotine dependence, cigarettes, uncomplicated; Z79.891 Long term (current) use of opiate analgesic; Z79.82 Long term (current) use of aspirin; Z79.899 Other long term (current) drug therapy; Z59.00 Homelessness unspecified
CPT/HCPCS: 70450; A4606; A4663

== ENCOUNTER 2024-06-19 09:35 | Emergency (ER) | payer MEDICAID ==
[~2024-06-19] VITALS: Ht 167.6 cm; Wt 70.3 kg
[~2024-06-19 09:35] MED LIST changes: -ATOR80TA; +ATOR80TA PO
[2024-06-19 09:37] VITALS: O2SAT 97
[2024-06-19] MEDS ORDERED: OXYCODONE/APAP 5-325 MG TABLET ONE (10:02)
[2024-06-19] MEDS: OXYCODONE/APAP 5-325 MG TABLET PO ONE (10:03)
== END 2024-06-19 10:16 | disposition home or self-care (01) ==
LOC: ER 09:35
DX: K40.90 Unilateral inguinal hernia, without obstruction or gangrene, not specified as recurrent (principal); F15.10 Other stimulant abuse, uncomplicated; I34.0 Nonrheumatic mitral (valve) insufficiency; I50.9 Heart failure, unspecified; I25.2 Old myocardial infarction; F17.200 Nicotine dependence, unspecified, uncomplicated; Z79.82 Long term (current) use of aspirin; Z79.891 Long term (current) use of opiate analgesic; Z76.5 Malingerer [conscious simulation]; Z98.890 Other specified postprocedural states; Z79.899 Other long term (current) drug therapy; Z59.00 Homelessness unspecified
CPT/HCPCS: A4606; A4663

== ENCOUNTER 2024-07-12 18:22 | Emergency (ER) | payer MEDICAID ==
[~2024-07-12] VITALS: Ht 175.3 cm; Wt 70.3 kg
[~2024-07-12 18:22] MED LIST changes: +ATOR80TA; -ATOR80TA PO
[2024-07-12] MEDS ORDERED: OXYCODONE/APAP 5-325 MG TABLET ONE (19:30)
[2024-07-12] MEDS: OXYCODONE/APAP 5-325 MG TABLET PO ONE (19:32)
[2024-07-12 21:54] LABS: *BILIRUBIN,URIN 1+ (NEGATIVE); *BLOOD, URINE NEGATIVE (NEGATIVE); *CLARITY,URINE CLEAR (CLEAR); *COLOR,URINE Orange (YELLOW); *KETONES,URINE TRACE (NEGATIVE); *PROTEIN,URINE 3+ (NEGATIVE); LEUKOCYTE ESTERASE ,URINE 3+ (NEGATIVE); NITRITE, URINE POSITIVE (NEGATIVE); UGLUCOSE TRACE (NEGATIVE)
[2024-07-12 22:02] LABS: BASOPHILS # (AUTO) 0.1 K/UL (0.0-0.2); BASOPHILS % (AUTO) 1.9 % (0.0-2.0); EOSINOPHILS # (AUTO) 0.1 K/uL (0.0-0.7); EOSINOPHILS % (AUTO) 2.6 % (0.0-7.0); HEMATOCRIT 40.8 % (36.7-47.1); HEMOGLOBIN 13.1 g/dL (12.5-16.3); LYMPHOCYTES # (AUTO) 1.5 K/uL (0.8-4.8); LYMPHOCYTES % (AUTO) 28.6 % (20.5-51.5); MEAN CORPUSCULAR HEMOGLOBIN 31.4 uug (23.8-33.4); MEAN CORPUSCULAR HGB CONC 32 g/dL (32.5-36.3); MEAN CORPUSCULAR VOLUME 97.6 fL (73.0-96.2); MONOCYTES # (AUTO) 0.5 K/uL (0.1-1.30); MONOCYTES % (AUTO) 9.1 % (0.0-11.0); NEUTROPHILS % (AUTO) 57.8 % (38.5-71.5); PLATELET COUNT (AUTO) 174 K/uL (152-348); RED BLOOD CELL COUNT(AUTO) 4.18 MIL/uL (4.06-5.63); RED CELL DISTRIBUTION WIDTH 16.1 % (12.1-16.2); WHITE BLOOD COUNT (AUTO) 5.3 K/uL (3.6-10.2)
[2024-07-12 22:02] LABS: BACTERIA,URINE FEW /HPF (NONE SEEN); RBC,URINE 0-3 /HPF (0-3); SQUAMOUS EPITHELIAL CELL,UR FEW /HPF (NONE SEEN)
[2024-07-12 22:05] LABS: DIFFERENTIAL COMMENT 1
[2024-07-12 22:11] LABS: CALCIUM 8.8 mg/dL (8.5-10.1); CREATININE 1.1 mg/dL (0.6-1.3)
[2024-07-12 22:17] LABS: ALBUMIN 3.6 g/dL (3.4-5.0); BILIRUBIN,DIRECT 0.5 mg/dL (0.0-0.2); BILIRUBIN,TOTAL 1.1 mg/dL (0.2-1.0)
[2024-07-12] MEDS: SHARK LIVER OIL/PETROLAT OINT 60 GM TUBE RC STA (23:20)
[2024-07-12] MEDS ORDERED: MORPHINE SULFATE 4 MG/1 ML DISP.SYRIN ONE (23:36)
[2024-07-13] MEDS: MORPHINE SULFATE 4 MG/1 ML DISP.SYRIN IM ONE (00:17)
[2024-07-13 03:00] VITALS: BP 133/90; TEMP 98; O2SAT 98
== END 2024-07-13 03:01 | disposition home or self-care (01) ==
LOC: ER 18:23
DX: K40.90 Unilateral inguinal hernia, without obstruction or gangrene, not specified as recurrent (principal); I50.9 Heart failure, unspecified; F17.200 Nicotine dependence, unspecified, uncomplicated; Z79.82 Long term (current) use of aspirin; Z79.891 Long term (current) use of opiate analgesic; Z79.899 Other long term (current) drug therapy; Z60.2 Problems related to living alone
CPT/HCPCS: 99285; 80076; 80048; 81001; 83690; 85025; 36415; 96372; J2270; A4606; A4663; A9150

== ENCOUNTER 2024-07-19 05:43 | Emergency (ER) | payer MEDICAID ==
[~2024-07-19] VITALS: Ht 175.3 cm; Wt 70.3 kg
[2024-07-19 06:21] VITALS: O2SAT 97
--- NOTE | 2024-07-19 06:34 | NUR ---
Dr. Remy at bedside for MSE.
[2024-07-19 07:17] LABS: BASOPHILS # (AUTO) 0.1 K/UL (0.0-0.2); BASOPHILS % (AUTO) 1.3 % (0.0-2.0); EOSINOPHILS # (AUTO) 0.2 K/uL (0.0-0.7); EOSINOPHILS % (AUTO) 4.6 % (0.0-7.0); HEMATOCRIT 36.2 % (36.7-47.1); HEMOGLOBIN 12.1 g/dL (12.5-16.3); LYMPHOCYTES # (AUTO) 0.8 K/uL (0.8-4.8); LYMPHOCYTES % (AUTO) 15.4 % (20.5-51.5); MEAN CORPUSCULAR HEMOGLOBIN 31.8 uug (23.8-33.4); MEAN CORPUSCULAR HGB CONC 33 g/dL (32.5-36.3); MEAN CORPUSCULAR VOLUME 95.5 fL (73.0-96.2); MONOCYTES # (AUTO) 0.5 K/uL (0.1-1.30); MONOCYTES % (AUTO) 10.5 % (0.0-11.0); NEUTROPHILS # (AUTO) 3.5 K/uL (1.8-8.9); NEUTROPHILS % (AUTO) 68.2 % (38.5-71.5); PLATELET COUNT (AUTO) 138 K/uL (152-348); RED BLOOD CELL COUNT(AUTO) 3.79 MIL/uL (4.06-5.63); RED CELL DISTRIBUTION WIDTH 15.7 % (12.1-16.2); WHITE BLOOD COUNT (AUTO) 5.2 K/uL (3.6-10.2)
[2024-07-19 07:23] LABS: DIFFERENTIAL COMMENT 1
--- NOTE | 2024-07-19 07:23 | NUR ---
Pt to CT/XRAY, NAD noted.
[2024-07-19 07:25] LABS: CALCIUM 8.3 mg/dL (8.5-10.1); POTASSIUM 3.7 mmol/L (3.5-5.1)
--- NOTE | 2024-07-19 07:38 | NUR ---
Pt back to ER RM3 from CT.
--- NOTE | 2024-07-19 08:12 | NUR ---
Pt sitting at bedside and eating breakfast, NAD noted.
[2024-07-19] MEDS ORDERED: ACET1TAB23 PO (08:34)
--- NOTE | 2024-07-19 09:02 | NUR ---
Patient discharged to home in stable condition. Written and verbal after care instructions given. Patient verbalizes understanding of instructions. Stressed follow up or return to ER for worsening s/s.
== END 2024-07-19 09:03 | disposition home or self-care (01) ==
LOC: ER 05:45
DX: S00.83XA Contusion of other part of head, initial encounter (principal); F15.10 Other stimulant abuse, uncomplicated; I25.2 Old myocardial infarction; I50.9 Heart failure, unspecified; F17.200 Nicotine dependence, unspecified, uncomplicated; Z79.899 Other long term (current) drug therapy; Z79.82 Long term (current) use of aspirin; Z79.891 Long term (current) use of opiate analgesic; Z59.00 Homelessness unspecified; Y04.8XXA Assault by other bodily force, initial encounter; Y93.89 Activity, other specified; Y92.89 Other specified places as the place of occurrence of the external cause; Y99.8 Other external cause status
CPT/HCPCS: 36415; 70450; 70486; 71045; 85025; A4606; A4663

== ENCOUNTER 2024-08-07 15:59 | Emergency (ER) | payer MEDICAID ==
[~2024-08-07] VITALS: Ht 175.3 cm; Wt 70.3 kg
[~2024-08-07 15:59] MED LIST changes: +ACET1TAB23 PO
[2024-08-07 17:19] LABS: BASOPHILS # (AUTO) 0.1 K/UL (0.0-0.2); BASOPHILS % (AUTO) 1.2 % (0.0-2.0); EOSINOPHILS # (AUTO) 0.4 K/uL (0.0-0.7); EOSINOPHILS % (AUTO) 6.4 % (0.0-7.0); HEMATOCRIT 34.1 % (36.7-47.1); HEMOGLOBIN 11.2 g/dL (12.5-16.3); LYMPHOCYTES # (AUTO) 0.9 K/uL (0.8-4.8); LYMPHOCYTES % (AUTO) 16.4 % (20.5-51.5); MEAN CORPUSCULAR HEMOGLOBIN 31.1 uug (23.8-33.4); MEAN CORPUSCULAR HGB CONC 33 g/dL (32.5-36.3); MONOCYTES # (AUTO) 0.5 K/uL (0.1-1.30); NEUTROPHILS # (AUTO) 3.8 K/uL (1.8-8.9); PLATELET COUNT (AUTO) 187 K/uL (152-348); RED CELL DISTRIBUTION WIDTH 14.9 % (12.1-16.2); WHITE BLOOD COUNT (AUTO) 5.7 K/uL (3.6-10.2)
[2024-08-07 17:22] LABS: DIFFERENTIAL COMMENT 1
[2024-08-07 17:29] LABS: CALCIUM 7.6 mg/dL (8.5-10.1); CREATININE 0.9 mg/dL (0.6-1.3); POTASSIUM 3.8 mmol/L (3.5-5.1)
[2024-08-07 17:36] LABS: ALBUMIN 3.1 g/dL (3.4-5.0); BILIRUBIN,DIRECT 0.3 mg/dL (0.0-0.2); TOTAL PROTEIN, SERUM 7.2 g/dL (6.4-8.2)
[2024-08-07] MEDS ORDERED: IBUP-1953 PO (19:13)
[2024-08-07 19:47] VITALS: BP 125/90; TEMP 97; O2SAT 100
== END 2024-08-07 19:20 | disposition home or self-care (01) ==
LOC: ER 15:59
DX: K59.00 Constipation, unspecified (principal); G89.29 Other chronic pain; R10.9 Unspecified abdominal pain; I50.9 Heart failure, unspecified; F17.200 Nicotine dependence, unspecified, uncomplicated; Z79.1 Long term (current) use of non-steroidal anti-inflammatories (NSAID); Z79.891 Long term (current) use of opiate analgesic; Z79.82 Long term (current) use of aspirin; Z79.899 Other long term (current) drug therapy; Z59.00 Homelessness unspecified
CPT/HCPCS: 36415; 74021; 83690; 85025; A4606; A4663; C1758

== ENCOUNTER 2024-08-28 17:31 | Inpatient (IN) | payer MEDICAID ==
[~2024-08-28] VITALS: Ht 175.3 cm; Wt 61.5 kg
[~2024-08-28 17:31] MED LIST changes: -ATOR80TA; +ATOR80TA PO; +IBUP-1953 PO
[2024-08-28 18:26] LABS: BASOPHILS # (AUTO) 0.1 K/UL (0.0-0.2); BASOPHILS % (AUTO) 1.4 % (0.0-2.0); EOSINOPHILS # (AUTO) 0.1 K/uL (0.0-0.7); EOSINOPHILS % (AUTO) 1.1 % (0.0-7.0); HEMATOCRIT 39.8 % (36.7-47.1); HEMOGLOBIN 12.9 g/dL (12.5-16.3); LYMPHOCYTES # (AUTO) 0.6 K/uL (0.8-4.8); LYMPHOCYTES % (AUTO) 9.8 % (20.5-51.5); MEAN CORPUSCULAR HEMOGLOBIN 30.8 uug (23.8-33.4); MEAN CORPUSCULAR HGB CONC 32 g/dL (32.5-36.3); MEAN CORPUSCULAR VOLUME 95.2 fL (73.0-96.2); MONOCYTES # (AUTO) 0.5 K/uL (0.1-1.30); MONOCYTES % (AUTO) 8.3 % (0.0-11.0); NEUTROPHILS % (AUTO) 79.4 % (38.5-71.5); PLATELET COUNT (AUTO) 144 K/uL (152-348); RED BLOOD CELL COUNT(AUTO) 4.19 MIL/uL (4.06-5.63); RED CELL DISTRIBUTION WIDTH 15.6 % (12.1-16.2); WHITE BLOOD COUNT (AUTO) 6.4 K/uL (3.6-10.2)
[2024-08-28 18:28] LABS: DIFFERENTIAL COMMENT 1
[2024-08-28 18:36] LABS: CALCIUM 8.8 mg/dL (8.5-10.1); CARBON DIOXIDE 26 mmol/L (21-32); CHLORIDE 99 mmol/L (98-107); CREATININE 1.3 mg/dL (0.6-1.3); GLUCOSE 99 mg/dL (74-106); POTASSIUM 4.2 mmol/L (3.5-5.1); SODIUM SERUM 135 mmol/L (136-145); UREA NITROGEN, BLOOD 24 mg/dL (7-18)
[2024-08-28 18:44] LABS: ALANINE AMINOTRANSFERASE 33 U/L (16-63); ALBUMIN 3.3 g/dL (3.4-5.0); ALKALINE PHOSPHATASE 133 U/L (50-136); ASPARTATE AMINOTRANSFERASE 39 U/L (15-37); BILIRUBIN,DIRECT 0.7 mg/dL (0.0-0.2); BILIRUBIN,TOTAL 1.8 mg/dL (0.2-1.0); LIPASE 48 U/L (16-77); TOTAL PROTEIN, SERUM 7.5 g/dL (6.4-8.2)
[2024-08-28] MEDS ORDERED: OXYCODONE/APAP 5-325 MG TABLET ONE ×2 (18:47→20:20)
[2024-08-28] MEDS ORDERED: FUROSEMIDE 40 MG TABLET ONE (18:48)
[2024-08-28] MEDS: IPRATROPIUM BROMIDE 0.5 MG/2.5 ML NEBU NEB ONE (18:53)
[2024-08-28] MEDS: FUROSEMIDE 20 MG TABLET PO ONE (18:53)
[2024-08-28] MEDS: OXYCODONE/APAP 5-325 MG TABLET PO ONE ×2 (18:53→20:23)
[2024-08-28] MEDS ORDERED: ALBUTEROL SULFATE 2.5 MG/3 ML NEBU ONE (18:59)
[2024-08-28] MEDS ORDERED: IPRATROPIUM BROMIDE 0.5 MG/2.5 ML NEBU ONE (18:59)
[2024-08-28 19:07] VITALS: O2SAT 94
[2024-08-28] MEDS: ALBUTEROL SULFATE 2.5 MG/3 ML NEBU NEB ONE (19:08)
[2024-08-28 19:20] VITALS: O2SAT 98
[2024-08-28] MEDS ORDERED: levoFLOXacin 750MG/D5W 150 ML IV ONE (20:10)
[2024-08-28 20:11] LABS: *BILIRUBIN,URIN NEGATIVE (NEGATIVE); *BLOOD, URINE NEGATIVE (NEGATIVE); *CLARITY,URINE CLEAR (CLEAR); *COLOR,URINE YELLOW (YELLOW); *KETONES,URINE NEGATIVE (NEGATIVE); *PROTEIN,URINE 2+ (NEGATIVE); *UROBILINOGEN,URINE 0.2 E.U./dl (NORMAL); LEUKOCYTE ESTERASE ,URINE NEGATIVE (NEGATIVE); NITRITE, URINE NEGATIVE (NEGATIVE); UGLUCOSE NEGATIVE (NEGATIVE)
[2024-08-28] MEDS: levoFLOXacin 750 MG/D5W 150 ML PIGGYBACK IV ONE (20:19)
[2024-08-28] MEDS ORDERED: REMEDY ESSENTIAL ZINC PASTE 113 GM TP PRN (20:30)
[2024-08-28] MEDS ORDERED: INSULIN REGULAR, HUMAN 1000 UNIT/10 ML VIAL SQ PRN (20:30)
[2024-08-28] MEDS ORDERED: MAGNESIUM HYDROXIDE 30 ML LIQUID UDC PO PRN (20:30)
[2024-08-28] MEDS ORDERED: ACETAMINOPHEN 325 MG TABLET PO PRN (20:30)
[2024-08-28] MEDS ORDERED: DEXTROSE 50% 50 ML DISP.SYRIN IV PRN (20:30)
[2024-08-28 20:41] LABS: *AMPHETAMINE, URINE POSITIVE (NEGATIVE); *BARBITURATE, URINE NEGATIVE (NEGATIVE); *BENZODIAZEPINE, URINE NEGATIVE (NEGATIVE); *CANNABINOID, URINE NEGATIVE (NEGATIVE); *COCCAINE, URINE NEGATIVE (NEGATIVE); *OPIATE, URINE NEGATIVE (NEGATIVE); *PHENCYCLIDINE SCREEN,URINE NEGATIVE (NEGATIVE); FENTANYL, URINE NEGATIVE (NEGATIVE)
[2024-08-28] MEDS ORDERED: BLOOD SUGAR DIAGNOSTIC 1 EACH STRIP VI SCH (21:00)
[2024-08-28 21:16] LABS: BACTERIA,URINE NONE SEEN /HPF (NONE SEEN); RBC,URINE NONE SEEN /HPF (0-3); SQUAMOUS EPITHELIAL CELL,UR FEW /HPF (NONE SEEN); WBC,URINE 0-3 /HPF (0-3)
[2024-08-28 22:30] VITALS: BP 139/97; TEMP 97.9; O2SAT 96
[2024-08-28] MEDS: ATORVASTATIN 40 MG TABLET PO SCH (22:46)
[2024-08-28] MEDS: OXYCODONE/APAP 5-325 MG TABLET PO PRN (22:48)
[2024-08-28] MEDS: ONDANSETRON 4 MG/2 ML VIAL IV PRN (23:55)
[2024-08-29] VITALS (7 sets, daily range): BP systolic 97–145; BP diastolic 56–104; TEMP 97.5–98.1; O2SAT 93–97
[2024-08-29 07:38] LABS: BASOPHILS # (AUTO) 0.1 K/UL (0.0-0.2); BASOPHILS % (AUTO) 0.9 % (0.0-2.0); EOSINOPHILS # (AUTO) 0.4 K/uL (0.0-0.7); EOSINOPHILS % (AUTO) 5.8 % (0.0-7.0); HEMATOCRIT 38.1 % (36.7-47.1); HEMOGLOBIN 12.6 g/dL (12.5-16.3); LYMPHOCYTES % (AUTO) 14.5 % (20.5-51.5); MEAN CORPUSCULAR HEMOGLOBIN 31.3 uug (23.8-33.4); MEAN CORPUSCULAR HGB CONC 33 g/dL (32.5-36.3); MEAN CORPUSCULAR VOLUME 94.3 fL (73.0-96.2); MONOCYTES # (AUTO) 0.6 K/uL (0.1-1.30); MONOCYTES % (AUTO) 8.5 % (0.0-11.0); NEUTROPHILS # (AUTO) 4.8 K/uL (1.8-8.9); NEUTROPHILS % (AUTO) 70.3 % (38.5-71.5); PLATELET COUNT (AUTO) 126 K/uL (152-348); RED BLOOD CELL COUNT(AUTO) 4.04 MIL/uL (4.06-5.63); RED CELL DISTRIBUTION WIDTH 15.6 % (12.1-16.2); WHITE BLOOD COUNT (AUTO) 6.9 K/uL (3.6-10.2)
[2024-08-29 07:47] LABS: DIFFERENTIAL COMMENT 1
[2024-08-29 08:04] LABS: CALCIUM 8.1 mg/dL (8.5-10.1); CREATININE 1.2 mg/dL (0.6-1.3); MAGNESIUM 1.9 mg/dL (1.8-2.4); PHOSPHOROUS 3.6 mg/dL (2.5-4.9); POTASSIUM 3.3 mmol/L (3.5-5.1)
[2024-08-29] MEDS: GABAPENTIN 300 MG CAPSULE PO SCH (08:48)
[2024-08-29] MEDS: ISOSORBIDE DINITRATE 10 MG TABLET PO SCH (08:48)
[2024-08-29] MEDS: ASPIRIN EC 81 MG TABLET.DR PO SCH (08:48)
[2024-08-29] MEDS: CARVEDILOL 6.25 MG TABLET PO SCH (08:48)
[2024-08-29] MEDS: HYDROCODONE/APAP 10-325 MG TABLET PO SCH (08:49)
[2024-08-29] MEDS: EMPAGLIFLOZIN 10 MG TABLET PO SCH (08:54)
[2024-08-29] MEDS ORDERED: LOSARTAN POTASSIUM 25 MG TABLET PO SCH (09:00)
[2024-08-29] MEDS ORDERED: SACUBITRIL/VALSARTAN 24 MG-26 TABLET PO SCH (09:00)
[2024-08-29] MEDS: POTASSIUM CHLORIDE 20 MEQ TAB.PRT.SR PO ONE (11:10)
[2024-08-29] MEDS ORDERED: FURO40TA5 PO (11:36)
[2024-08-29] MEDS ORDERED: APIX5TAB PO (11:42)
[2024-08-29] MEDS ORDERED: GABA300C PO (11:42)
[2024-08-29] MEDS ORDERED: PANT40TA49 PO (11:42)
[2024-08-29] MEDS ORDERED: LOSA50TA39 PO (11:42)
[2024-08-29] MEDS: FUROSEMIDE 40 MG/4 ML VIAL IV SCH (13:56)
[2024-08-29] MEDS: HYDROCODONE/APAP 5-325MG TABLET PO SCH (17:06)
[2024-08-29] MEDS: ATORVASTATIN 40 MG TABLET PO SCH (21:24)
[2024-08-29] MEDS: levoFLOXacin 500 MG/D5W 500 MG in PREMIXED 1 EACH IV SCH (21:24)
[2024-08-29] MEDS: APIXABAN 5 MG TABLET PO SCH (21:27)
[2024-08-30] VITALS (8 sets, daily range): BP systolic 96–121; BP diastolic 58–79; TEMP 97.4–98; O2SAT 96–100
[2024-08-30] MEDS: PANTOPRAZOLE SODIUM 40 MG TABLET.DR PO SCH (06:24)
[2024-08-30 07:13] LABS: CALCIUM 8.5 mg/dL (8.5-10.1); CREATININE 1.1 mg/dL (0.6-1.3); POTASSIUM 3.9 mmol/L (3.5-5.1)
[2024-08-30] MEDS: LOSARTAN POTASSIUM 50 MG TABLET PO SCH (09:45)
[2024-08-30] MEDS: MUPIROCIN 2% OINT 22 GM TUBE NS SCH (09:49)
[2024-08-31] VITALS (7 sets, daily range): BP systolic 97–124; BP diastolic 47–88; TEMP 97.4–98.8; O2SAT 92–100
[2024-08-31 07:03] LABS: BASOPHILS # (AUTO) 0.1 K/UL (0.0-0.2); BASOPHILS % (AUTO) 1.4 % (0.0-2.0); EOSINOPHILS # (AUTO) 0.5 K/uL (0.0-0.7); EOSINOPHILS % (AUTO) 9.5 % (0.0-7.0); HEMATOCRIT 38.8 % (36.7-47.1); HEMOGLOBIN 13.1 g/dL (12.5-16.3); LYMPHOCYTES # (AUTO) 0.8 K/uL (0.8-4.8); LYMPHOCYTES % (AUTO) 14.5 % (20.5-51.5); MEAN CORPUSCULAR HEMOGLOBIN 31.6 uug (23.8-33.4); MEAN CORPUSCULAR HGB CONC 34 g/dL (32.5-36.3); MEAN CORPUSCULAR VOLUME 93.7 fL (73.0-96.2); MONOCYTES # (AUTO) 0.5 K/uL (0.1-1.30); NEUTROPHILS # (AUTO) 3.4 K/uL (1.8-8.9); NEUTROPHILS % (AUTO) 64.6 % (38.5-71.5); PLATELET COUNT (AUTO) 146 K/uL (152-348); RED BLOOD CELL COUNT(AUTO) 4.14 MIL/uL (4.06-5.63); RED CELL DISTRIBUTION WIDTH 15.5 % (12.1-16.2); WHITE BLOOD COUNT (AUTO) 5.3 K/uL (3.6-10.2)
[2024-08-31 07:13] LABS: CALCIUM 8.7 mg/dL (8.5-10.1); CREATININE 1.3 mg/dL (0.6-1.3); PHOSPHOROUS 3.3 mg/dL (2.5-4.9); POTASSIUM 3.6 mmol/L (3.5-5.1)
[2024-08-31 07:17] LABS: DIFFERENTIAL COMMENT 1
[2024-08-31] MEDS: FUROSEMIDE 40 MG TABLET PO SCH (16:56)
[2024-08-31] MEDS: levoFLOXacin 500 MG TABLET PO SCH (20:49)
[2024-09-01 04:04] VITALS: O2SAT 98
[2024-09-01 06:00] VITALS: BP 90/50; TEMP 98.3; O2SAT 95
[2024-09-01 11:30] VITALS: BP 95/55; TEMP 98.4; O2SAT 94
[2024-09-01 18:57] VITALS: BP 100/55; TEMP 98.3; O2SAT 99
[2024-09-01 20:00] VITALS: BP 107/73; TEMP 97.7; O2SAT 96
[2024-09-01] MEDS: ATORVASTATIN 10 MG TABLET PO SCH (20:34)
[2024-09-01] MEDS: OXYCODONE HCL 5 MG TABLET PO PRN (20:36)
[2024-09-02] VITALS (8 sets, daily range): BP systolic 98–122; BP diastolic 55–84; TEMP 97.7–98.7; O2SAT 93–99
[2024-09-02 07:17] LABS: ALBUMIN 3.2 g/dL (3.4-5.0); BILIRUBIN,TOTAL 0.8 mg/dL (0.2-1.0); CALCIUM 9.1 mg/dL (8.5-10.1); CREATININE 1.6 mg/dL (0.6-1.3); MAGNESIUM 2.2 mg/dL (1.8-2.4); PHOSPHOROUS 4.2 mg/dL (2.5-4.9); POTASSIUM 3.9 mmol/L (3.5-5.1); TOTAL PROTEIN, SERUM 7.8 g/dL (6.4-8.2)
[2024-09-02 07:46] LABS: THYROID STIMULATING HORMONE 0.604 mIU/mL (0.358-3.740)
[2024-09-02 08:16] LABS: BASOPHILS # (AUTO) 0.1 K/UL (0.0-0.2); BASOPHILS % (AUTO) 0.9 % (0.0-2.0); EOSINOPHILS # (AUTO) 0.5 K/uL (0.0-0.7); EOSINOPHILS % (AUTO) 7.6 % (0.0-7.0); HEMATOCRIT 42.1 % (36.7-47.1); HEMOGLOBIN 13.8 g/dL (12.5-16.3); LYMPHOCYTES # (AUTO) 1.1 K/uL (0.8-4.8); LYMPHOCYTES % (AUTO) 16.8 % (20.5-51.5); MEAN CORPUSCULAR HGB CONC 33 g/dL (32.5-36.3); MEAN CORPUSCULAR VOLUME 94.1 fL (73.0-96.2); MONOCYTES # (AUTO) 0.8 K/uL (0.1-1.30); MONOCYTES % (AUTO) 12.2 % (0.0-11.0); NEUTROPHILS # (AUTO) 4.1 K/uL (1.8-8.9); NEUTROPHILS % (AUTO) 62.5 % (38.5-71.5); PLATELET COUNT (AUTO) 168 K/uL (152-348); RED BLOOD CELL COUNT(AUTO) 4.47 MIL/uL (4.06-5.63); RED CELL DISTRIBUTION WIDTH 15.4 % (12.1-16.2); WHITE BLOOD COUNT (AUTO) 6.6 K/uL (3.6-10.2)
[2024-09-02 08:26] LABS: DIFFERENTIAL COMMENT 1
[2024-09-02] MEDS ORDERED: levoFLOXacin 250 MG TABLET PO SCH (21:00)
[2024-09-03 06:00] VITALS: BP 132/94; TEMP 97.1; O2SAT 95
[2024-09-03 06:55] LABS: BASOPHILS # (AUTO) 0.2 K/UL (0.0-0.2); BASOPHILS % (AUTO) 3.4 % (0.0-2.0); EOSINOPHILS # (AUTO) 0.4 K/uL (0.0-0.7); EOSINOPHILS % (AUTO) 7.7 % (0.0-7.0); HEMATOCRIT 39.7 % (36.7-47.1); HEMOGLOBIN 13.3 g/dL (12.5-16.3); LYMPHOCYTES % (AUTO) 18.6 % (20.5-51.5); MEAN CORPUSCULAR HEMOGLOBIN 31.3 uug (23.8-33.4); MEAN CORPUSCULAR HGB CONC 34 g/dL (32.5-36.3); MEAN CORPUSCULAR VOLUME 93.2 fL (73.0-96.2); MONOCYTES # (AUTO) 0.7 K/uL (0.1-1.30); MONOCYTES % (AUTO) 12.3 % (0.0-11.0); NEUTROPHILS # (AUTO) 3.1 K/uL (1.8-8.9); PLATELET COUNT (AUTO) 157 K/uL (152-348); RED BLOOD CELL COUNT(AUTO) 4.26 MIL/uL (4.06-5.63); RED CELL DISTRIBUTION WIDTH 15.6 % (12.1-16.2); WHITE BLOOD COUNT (AUTO) 5.3 K/uL (3.6-10.2)
[2024-09-03 06:58] LABS: DIFFERENTIAL COMMENT 1
[2024-09-03 07:13] LABS: ALBUMIN 3.2 g/dL (3.4-5.0); BILIRUBIN,TOTAL 0.6 mg/dL (0.2-1.0); CALCIUM 8.8 mg/dL (8.5-10.1); CREATININE 1.2 mg/dL (0.6-1.3); PHOSPHOROUS 3.7 mg/dL (2.5-4.9); POTASSIUM 3.4 mmol/L (3.5-5.1); TOTAL PROTEIN, SERUM 7.6 g/dL (6.4-8.2)
[2024-09-03 08:23] VITALS: BP 120/79; O2SAT 100
[2024-09-03 11:03] VITALS: BP 95/66; TEMP 97.6; O2SAT 94
[2024-09-03] MEDS: POTASSIUM CHLORIDE 20 MEQ TAB.PRT.SR PO ONE (11:55)
[2024-09-03 16:06] VITALS: BP 98/70; TEMP 98.2; O2SAT 94
[2024-09-03 21:45] VITALS: BP 112/70; TEMP 97.6; O2SAT 97
[2024-09-04 02:33] VITALS: BP 126/70
[2024-09-04 05:11] VITALS: BP 129/83; TEMP 97.5; O2SAT 96
[2024-09-04 07:41] LABS: CALCIUM 8.9 mg/dL (8.5-10.1); POTASSIUM 3.7 mmol/L (3.5-5.1)
[2024-09-04 07:56] VITALS: BP 141/88; TEMP 97.8; O2SAT 99
[2024-09-04 08:08] LABS: PTH, INTACT 27 pg/mL (15-65)
[2024-09-04 09:10] LABS: A/G RATIO 0.8 (0.7-1.7); ALPHA-1-GLOBULIN 0.3 g/dL (0.0-0.4); ALPHA-2-GLOBULIN 0.5 g/dL (0.4-1.0); BETA GLOBULIN 1.3 g/dL (0.7-1.3); GAMMA GLOBULIN 1.8 g/dL (0.4-1.8); GLOBULIN, TOTAL 3.9 g/dL (2.2-3.9); M-SPIKE Not Observed g/dL (Not Observed); PROTEIN, TOTAL 6.9 g/dL (6.0-8.5)
[2024-09-04 11:51] VITALS: BP 104/66; TEMP 98.6; O2SAT 95
== END 2024-09-04 14:55 | disposition home or self-care (01) | DRG 194 ==
LOC: ER 17:31 → TELE3 21:54 → MEDSURG3 08-31 09:30
PROVIDERS: ADMIT Nurse Practitioner Acute Care; ATTEND Student in an Organized Health Care Education/Training Program
DX: I11.0 Hypertensive heart disease with heart failure (principal); N17.0 Acute kidney failure with tubular necrosis; G92.8 Other toxic encephalopathy; I42.0 Dilated cardiomyopathy; J18.9 Pneumonia, unspecified organism; K74.60 Unspecified cirrhosis of liver; I48.0 Paroxysmal atrial fibrillation; Z79.01 Long term (current) use of anticoagulants; I25.10 Atherosclerotic heart disease of native coronary artery without angina pectoris; F15.10 Other stimulant abuse, uncomplicated; Z59.02 Unsheltered homelessness; Z79.84 Long term (current) use of oral hypoglycemic drugs; Z79.899 Other long term (current) drug therapy; Z91.199 Patient's noncompliance with other medical treatment and regimen due to unspecified reason; I50.43 Acute on chronic combined systolic (congestive) and diastolic (congestive) heart failure; Z79.82 Long term (current) use of aspirin; K40.90 Unilateral inguinal hernia, without obstruction or gangrene, not specified as recurrent; G89.29 Other chronic pain; F39 Unspecified mood [affective] disorder; E87.6 Hypokalemia; E78.5 Hyperlipidemia, unspecified; F19.10 Other psychoactive substance abuse, uncomplicated; F11.20 Opioid dependence, uncomplicated; F99 Mental disorder, not otherwise specified; I07.1 Rheumatic tricuspid insufficiency
CPT/HCPCS: 36415; 71045; 76770; 83690; 83735; 83970; 84100; 84155; 84165; 84443; 84484; 85025; 87040; G0378; J1815; J1940; J1956; J2405; J3590

== ENCOUNTER 2024-09-11 20:37 | Emergency (ER) | payer MEDICAID ==
[~2024-09-11] VITALS: Ht 175.3 cm; Wt 70.3 kg
[~2024-09-11 20:37] MED LIST changes: -ACET1TAB23 PO; +APIX5TAB PO; +GABA300C PO; -GABA300T25; -HYDR-3980 PO; -IBUP-1953 PO; -LOSA25TA27 PO; -NITR0.4T48 SL; +PANT40TA49 PO; -SACU1TAB PO; -SPIR25TA6 PO
[2024-09-11 20:49] VITALS: O2SAT 100
== END 2024-09-11 23:30 | disposition left against medical advice (07) ==
LOC: ER 20:39
DX: M79.10 Myalgia, unspecified site (principal); Z53.21 Procedure and treatment not carried out due to patient leaving prior to being seen by health care provider
CPT/HCPCS: A4606; A4663

== ENCOUNTER 2024-09-12 00:53 | Emergency (ER) | payer MEDICAID ==
[~2024-09-12] VITALS: Ht 175.3 cm; Wt 70.3 kg
[2024-09-12] MEDS ORDERED: OXYCODONE/APAP 5-325 MG TABLET ONE (01:16)
[2024-09-12] MEDS: OXYCODONE/APAP 5-325 MG TABLET PO ONE (01:18)
[2024-09-12 06:18] VITALS: BP 138/85; TEMP 97.8; O2SAT 98
== END 2024-09-12 06:21 | disposition home or self-care (01) ==
LOC: ER 00:55
DX: G89.29 Other chronic pain (principal); I50.9 Heart failure, unspecified; F17.210 Nicotine dependence, cigarettes, uncomplicated; Z79.01 Long term (current) use of anticoagulants; Z79.82 Long term (current) use of aspirin; Z79.84 Long term (current) use of oral hypoglycemic drugs; Z79.891 Long term (current) use of opiate analgesic; Z79.899 Other long term (current) drug therapy; Z59.00 Homelessness unspecified
CPT/HCPCS: A4606; A4663

== ENCOUNTER 2024-10-01 18:04 | Emergency (ER) | payer MEDICAID ==
[~2024-10-01] VITALS: Ht 170.2 cm; Wt 72.6 kg
[2024-10-01 19:18] LABS: CALCIUM 8.5 mg/dL (8.5-10.1); CARBON DIOXIDE 24 mmol/L (21-32); CHLORIDE 102 mmol/L (98-107); CREATININE 0.9 mg/dL (0.6-1.3); GLUCOSE 173 mg/dL (74-106); POTASSIUM 3.3 mmol/L (3.5-5.1); SODIUM SERUM 137 mmol/L (136-145); UREA NITROGEN, BLOOD 28 mg/dL (7-18)
[2024-10-01 19:20] LABS: BASOPHILS # (AUTO) 0.1 K/UL (0.0-0.2); BASOPHILS % (AUTO) 1.5 % (0.0-2.0); EOSINOPHILS # (AUTO) 0.2 K/uL (0.0-0.7); EOSINOPHILS % (AUTO) 3.1 % (0.0-7.0); HEMATOCRIT 33.2 % (36.7-47.1); HEMOGLOBIN 10.9 g/dL (12.5-16.3); LYMPHOCYTES # (AUTO) 0.8 K/uL (0.8-4.8); LYMPHOCYTES % (AUTO) 11.4 % (20.5-51.5); MEAN CORPUSCULAR HEMOGLOBIN 30.3 uug (23.8-33.4); MEAN CORPUSCULAR HGB CONC 33 g/dL (32.5-36.3); MEAN CORPUSCULAR VOLUME 92.8 fL (73.0-96.2); MONOCYTES # (AUTO) 0.6 K/uL (0.1-1.30); MONOCYTES % (AUTO) 9.2 % (0.0-11.0); NEUTROPHILS # (AUTO) 5.2 K/uL (1.8-8.9); NEUTROPHILS % (AUTO) 74.8 % (38.5-71.5); PLATELET COUNT (AUTO) 226 K/uL (152-348); RED BLOOD CELL COUNT(AUTO) 3.58 MIL/uL (4.06-5.63); RED CELL DISTRIBUTION WIDTH 15.1 % (12.1-16.2); WHITE BLOOD COUNT (AUTO) 6.9 K/uL (3.6-10.2)
[2024-10-01 19:21] LABS: DIFFERENTIAL COMMENT 1
[2024-10-01 19:25] LABS: ALANINE AMINOTRANSFERASE 25 U/L (16-63); ALBUMIN 2.7 g/dL (3.4-5.0); ALKALINE PHOSPHATASE 122 U/L (50-136); ASPARTATE AMINOTRANSFERASE 43 U/L (15-37); BILIRUBIN,TOTAL 0.9 mg/dL (0.2-1.0); TOTAL PROTEIN, SERUM 7.3 g/dL (6.4-8.2)
[2024-10-01] MEDS ORDERED: KETOROLAC TROMETHAMINE 30 MG INJ ONE (19:25)
[2024-10-01 19:27] LABS: ETHANOL < 3 MG/DL (0-10)
[2024-10-01] MEDS: KETOROLAC TROMETHAMINE 30 MG INJ IM ONE (19:31)
[2024-10-01] MEDS ORDERED: POTASSIUM CHLORIDE 20 MEQ TAB.PRT.SR ONE (20:06)
[2024-10-01] MEDS: POTASSIUM CHLORIDE 20 MEQ TAB.PRT.SR PO ONE (20:08)
[2024-10-01 20:16] VITALS: BP 122/76; TEMP 98; O2SAT 98
== END 2024-10-01 20:40 | disposition home or self-care (01) ==
LOC: ER 18:04
DX: G89.29 Other chronic pain (principal); I50.9 Heart failure, unspecified; F17.210 Nicotine dependence, cigarettes, uncomplicated; Z79.01 Long term (current) use of anticoagulants; Z79.82 Long term (current) use of aspirin; Z79.84 Long term (current) use of oral hypoglycemic drugs; Z79.899 Other long term (current) drug therapy; Z59.00 Homelessness unspecified
CPT/HCPCS: 80053; 85025; 99283; 96372; 80320; 80307; J1885; 36415; A4606; A4663; G0480

== ENCOUNTER 2025-07-02 07:50 | Emergency (ER) | payer MEDICAID ==
[~2025-07-02] VITALS: Ht 175.3 cm; Wt 70.3 kg
[2025-07-02 07:53] VITALS: BP 101/80
[2025-07-02] MEDS ORDERED: FAMOTIDINE 20 MG TABLET ONE (08:19)
[2025-07-02] MEDS ORDERED: METOCLOPRAMIDE HCL 10 MG TABLET ONE (08:19)
[2025-07-02] MEDS: FAMOTIDINE 20 MG TABLET PO ONE (08:23)
[2025-07-02] MEDS: METOCLOPRAMIDE HCL 10 MG TABLET PO ONE (08:23)
[2025-07-02 10:25] VITALS: BP 101/80; TEMP 97.7; O2SAT 98
== END 2025-07-02 10:49 | disposition home or self-care (01) ==
LOC: ER 07:50
DX: R10.9 Unspecified abdominal pain (principal); F17.210 Nicotine dependence, cigarettes, uncomplicated; Z59.00 Homelessness unspecified; Z79.01 Long term (current) use of anticoagulants; Z79.82 Long term (current) use of aspirin; Z79.84 Long term (current) use of oral hypoglycemic drugs; Z79.899 Other long term (current) drug therapy; Z86.79 Personal history of other diseases of the circulatory system; Z87.09 Personal history of other diseases of the respiratory system; Z87.19 Personal history of other diseases of the digestive system; Z87.39 Personal history of other diseases of the musculoskeletal system and connective tissue
CPT/HCPCS: 98960; A4606; A4663; J8597